=== PATIENT | male | born 1935 | race Caucasian/White ===

== ENCOUNTER 2016-08-04 08:19 | Emergency (ER) | payer MEDICARE, BC ==
--- NOTE | 2016-08-04 09:04 | EDM.PDOC ---
ED HPI GENERAL MEDICAL PROBLEM - General Chief Complaint: Chest Pain Stated Complaint: CHEST PRESSURE AND SOME BACK PAIN Time Seen by Provider: 08/04/16 08:51 Source of Information: Reports: Patient, Family, RN Notes Reviewed History Limitations: Reports: No Limitations - History of Present Illness INITIAL COMMENTS - FREE TEXT/NARRATIVE: 81-year-old gentleman presents emergency department a complaint of chest pressure and shortness of breath states he's been ill feeling this way for about a week he noticed the chest pressure and shortness of breath mainly when he exerts himself. Will come and go denies much pressure or shortness of breath at rest he is pain-free at this time. He does have past medical history of coronary artery disease status post CABG as well as diabetes mellitus type 2 last stress test he thinks is about 5 or 6 years ago Chest Pain Score (Numeric/FACES): 1 - Related Data Allergies Allergy/AdvReac Type Severity Reaction Status Date / Time No Known Allergies Allergy Unverified 08/04/16 08:31 Home Meds: Home Meds Doxazosin [Cardura] 8 mg PO BEDTIME 07/22/15 [History] Finasteride 5 mg PO DAILY 07/22/15 [History] Gemfibrozil [Gemfibrozil] 600 mg PO BID 07/22/15 [History] HCTZ/Spironolactone [Spironolactone/HCTZ 25-25 MG] 1 tab PO DAILY 07/22/15 [ History] Metoprolol Tartrate [Metoprolol Tartrate] 50 mg PO DAILY 07/22/15 [History] Simvastatin [Simvastatin] 10 mg PO BEDTIME 07/22/15 [History] metFORMIN [Glucophage] 1 tab PO TID 07/22/15 [History] Aspirin [Halfprin] 81 mg PO DAILY 08/04/16 [History] Potassium Gluconate [Potassium] 600 mg PO 08/04/16 [History] Past Medical History Cardiovascular History: Reports: High Cholesterol, Hypertension Genitourinary History: Reports: BPH, Prostate Disorder Endocrine/Metabolic History: Reports: Diabetes, Type II - Infectious Disease History Infectious Disease History: Reports: Chicken Pox, Measles - Past Surgical History Cardiovascular Surgical History: Reports: Coronary Artery Bypass Other Cardiovascular Surgeries/Procedures: 15 years ago GI Surgical History: Reports: Colonoscopy, Hernia Repair/Other Social & Family History - Tobacco Use Smoking Status *Q: Never Smoker - Caffeine Use Caffeine Use: Reports: None - Recreational Drug Use Recreational Drug Use: No ED ROS GENERAL - Review of Systems Review Of Systems: See Below Constitutional: Reports: No Symptoms HEENT: Reports: No Symptoms Respiratory: Reports: Shortness of Breath Cardiovascular: Reports: Chest Pain, Dyspnea on Exertion GI/Abdominal: Reports: No Symptoms : Reports: No Symptoms Musculoskeletal: Reports: No Symptoms Skin: Reports: No Symptoms Neurological: Reports: No Symptoms ED EXAM, GENERAL - Physical Exam Exam: See Below Free Text/Narrative:: General: Elderly male, not in any distress, alert and oriented x3 HEENT: head is atraumatic normocephalic, eyes pupils equal round reactive to light, sclera clear no conjunctivitis appreciated. Ears tympanic membranes clear and bui landmarks and light reflex are present bilaterally canals are clear. Nose no septal deviation, nares are clear, no blood present. Mouth mucosa is moist and pink no erythema or exudate noted in soft palate, tongue is midline uvula is midline, dentition is intact. Neck: Supple no thyromegaly no tracheal deviation. Nodes: Cervical nodes subclavicular nodes nontender no palpable lymphadenopathy noted. Lungs: clear to auscultation bilaterally with symmetrical respirations, no adventitious noise appreciated. CV: Regular rate and rhythm S1 and S2 appreciated no murmurs rubs or gallops noted. Abdomen: Soft, nontender, no palpable masses or organomegaly appreciated, no distention no guarding bowel sounds are present, . Neuro: Cranial nerves II through XII grossly intact Skin: Warm and dry, intact Extremities: No lower extremity edema appreciated, pedal pulse is +2. Course - Vital Signs Last Recorded V/S: Last Vital Signs Temp 96.6 F 08/04/16 08:25 Pulse 65 08/04/16 08:25 Resp 18 08/04/16 08:25 BP 138/78 08/04/16 08:25 Pulse Ox 98 08/04/16 08:25 - Orders/Labs/Meds Orders: Active Orders 24 hr Category Date Time Status Cardiac Monitoring [RC] .As Directed Care 08/04/16 08:59 Active EKG Documentation Completion [RC] ASDIRECTED Care 08/04/16 08:59 Active EKG 12 Lead [EK] Stat Ther 08/04/16 08:59 Ordered Labs: Laboratory Tests 08/04/16 08/04/16 Range/Units 09:09 09:09 WBC 6.2 (4.5-11.0) K/uL RBC 4.18 L (4.30-5.90) M/uL Hgb 12.8 (12.0-15.0) g/dL Hct 36.5 L (40.0-54.0) % MCV 87 (80-98) fL MCH 31 (27-31) pg MCHC 35 (32-36) % Plt Count 174 (150-400) K/uL Neut % (Auto) 70 H (36-66) % Lymph % (Auto) 16 L (24-44) % Clark % (Auto) 8 H (2-6) % Eos % (Auto) 6 H (2-4) % Baso % (Auto) 1 (0-1) % Sodium 138 L (140-148) mmol/L Potassium 4.1 (3.6-5.2) mmol/L Chloride 103 (100-108) mmol/L Carbon Dioxide 26 (21-32) mmol/L Anion Gap 13.1 (5.0-14.0) mmol/L BUN 33 H (7-18) mg/dL Creatinine 1.4 H (0.8-1.3) mg/dL Est Cr Clr Drug Dosing 43.45 mL/min Estimated GFR (MDRD) 49 L (>60) Glucose 184 H (74-106) mg/dL Calcium 9.2 (8.5-10.1) mg/dL Total Bilirubin 0.4 (0.2-1.0) mg/dL AST 16 (15-37) U/L ALT 14 (12-78) U/L Alkaline Phosphatase 50 (46-116) U/L Troponin I 0.020 (0.000-0.056) ng/mL Liz-D-[id number] Pept 78 (5-450) pg/mL Total Protein 6.5 (6.4-8.2) g/dL Albumin 3.6 (3.4-5.0) g/dL Globulin 2.9 (2.3-3.5) g/dL Albumin/Globulin Ratio 1.2 (1.2-2.2) Departure - Departure Time of Disposition: 10:11 Disposition: Home, Self-Care 01 Condition: Good Clinical Impression: Chest pain Qualifiers: Chest pain type: unspecified Qualified Code(s): R07.9 - Chest pain, unspecified Forms: ED Department Discharge Additional Instructions: Please report to is on for a stress test, then follow-up with Dr. Medina for review of results, call return to the emergency department worsening of symptoms - My Orders Last 24 Hours: My Active Orders 08/04/16 08:59 Cardiac Monitoring [RC] .As Directed EKG Documentation Completion [RC] ASDIRECTED EKG 12 Lead [EK] Stat - Assessment/Plan Last 24 Hours: My Active Orders 08/04/16 08:59 Cardiac Monitoring [RC] .As Directed EKG Documentation Completion [RC] ASDIRECTED EKG 12 Lead [EK] Stat Plan: Assessment Acuity = acute Site and laterality = chest pain and shortness of breath with exertion complicated patient with known history of diabetes mellitus type 2 and coronary artery disease Etiology = unclear etiology Manifestations = none Location of injury = home Lab values = CBC unremarkable, sodium low at 138 consistent hyponatremia creatinine elevated at 1.4 consistent with chronic renal failure stage G IIIB troponin was negative BNP negative EKG demonstrates left axis deviation with right bundle branch block sinus rhythm chest x-ray shows no acute process Plan Call discussed case with his primary care provider Dr. Medina we agreed to set him up for a Lexiscan stress test to be done this week, he will follow up with Dr. Medina after the test Patient was in agreement with the plan all questions were answered, they were instructed to return to the emergency department or call for worsening symptoms. This note was dictated using [employer] voice recognition software please call with any questions.
--- NOTE | 2016-08-04 10:00 | CR ---
Chest 2V INDICATION: Chest Pain FINDINGS: Sternotomy. Normal heart size. Lungs are clear. Chest otherwise unremarkable.
[2016-08-04 10:51] VITALS: BP 128/66
== END 2016-08-04 10:45 | disposition home or self-care (01) ==
LOC: JP.ED 08:19
DX: R07.9 Chest pain, unspecified (principal); I10 Essential (primary) hypertension; E11.9 Type 2 diabetes mellitus without complications; E78.00 Pure hypercholesterolemia, unspecified; Z95.5 Presence of coronary angioplasty implant and graft; Z98.890 Other specified postprocedural states; Z79.82 Long term (current) use of aspirin; Z79.84 Long term (current) use of oral hypoglycemic drugs; Z79.899 Other long term (current) drug therapy
CPT/HCPCS: 36415; 71020; 71020-26; 80053; 83880; 84484; 85025; 93005; 93010; 99283; 99285-25

== ENCOUNTER 2017-01-06 08:49 | Day surgery (SDC) | payer MEDICARE, BC ==
[~2017-01-06 08:49] MED LIST: Sodium Chloride 0.9% 1,000 ML IV SCH
[2017-01-06] MEDS ORDERED: Propofol 200 MG/20 ML SDV ONE (09:45)
[2017-01-06] MEDS ORDERED: Midazolam 1 MG/ML 2 ML SDV ONE (09:45)
[2017-01-06] MEDS ORDERED: fentaNYL 100 MCG/2 ML SDV ONE (09:45)
[2017-01-06 12:15] VITALS: BP 115/60
--- NOTE | 2017-01-06 13:20 | OR ---
DATE OF PROCEDURE: 01/06/2017 PROCEDURE PERFORMED: Colonoscopy. FINDINGS: 1. A very small polyp completely removed in ascending colon. 2. Transverse colon polyp, approximately 5 mm, completely removed using cold biopsy forceps. COMPLICATIONS: None. MAIL DELIVERER: None. ANESTHESIA: MAC. PREOPERATIVE DIAGNOSIS: History of colon polyps. POSTOPERATIVE DIAGNOSIS: History of colon polyps. RISKS: Risks, benefits, alternatives, and limitations including, but not limited to infection, bleeding, and perforation were explained to the patient, and he wished to proceed. PROCEDURE IN DETAIL: The patient was placed in left lateral decubitus position. Digital rectal exam was performed without abnormality. The scope was then introduced and advanced atraumatically to the ileocecal valve. The scope was brought back to the ascending, transverse, descending colon, and retroflexed. The aforementioned polyps were identified and removed. No abnormalities on retroflex. The patient had diverticulosis, which would be described as very mild. Benigno Huber MD /[id number]
== END 2017-01-06 12:30 | disposition home or self-care (01) ==
LOC: JP.SDS 08:49
PROVIDERS: ATTEND Surgery
DX: Z12.11 Encounter for screening for malignant neoplasm of colon (principal); D12.2 Benign neoplasm of ascending colon; D12.3 Benign neoplasm of transverse colon; K57.30 Diverticulosis of large intestine without perforation or abscess without bleeding; I25.10 Atherosclerotic heart disease of native coronary artery without angina pectoris; E11.9 Type 2 diabetes mellitus without complications; I10 Essential (primary) hypertension; E78.00 Pure hypercholesterolemia, unspecified; Z86.010 Personal history of colon polyps; Z95.1 Presence of aortocoronary bypass graft; Z98.890 Other specified postprocedural states; Z79.01 Long term (current) use of anticoagulants
CPT/HCPCS: 45380; J2250; J2704; J3010; J7040; 88305

== ENCOUNTER 2021-07-28 06:23 | Day surgery (SDC) | payer MEDICARE, BC ==
[2021-07-28] MEDS ORDERED: Lactated Ringers 1,000 ML IV SCH (07:00)
[2021-07-28] MEDS ORDERED: fentaNYL 100 MCG/2 ML SDV ONE (07:22)
[2021-07-28] MEDS ORDERED: Propofol 200 MG/20 ML SDV ONE (07:22)
[2021-07-28 08:50] VITALS: BP 131/56; PULSE 47
== END 2021-07-28 09:05 | disposition home or self-care (01) ==
LOC: JP.SDS 06:23
PROVIDERS: ATTEND Internal Medicine
DX: Z12.11 Encounter for screening for malignant neoplasm of colon (principal); D12.4 Benign neoplasm of descending colon; K64.4 Residual hemorrhoidal skin tags; E11.9 Type 2 diabetes mellitus without complications; I10 Essential (primary) hypertension; Z98.890 Other specified postprocedural states; Z86.010 Personal history of colon polyps
CPT/HCPCS: 45380; 88305; J2704; J3010; J7120

== ENCOUNTER 2023-11-08 08:38 | Inpatient (IN) | payer MEDICARE, BC ==
[2023-11-08 09:56] LABS: BASOPHILS PERCENT AUTO 0.4 % (0.1-1.3); EOSINOPHILS ABSOLUTE AUTO 0.09 K/uL (0.00-0.40); EOSINOPHILS PERCENT AUTO 1.7 % (0.0-5.4); HEMATOCRIT 28.5 % (38.4-49.7); HEMOGLOBIN 10.6 g/dL (12.9-16.9); IMMATURE GRAN ABSOLUTE AUTO 0.04 K/uL (0.00-0.23); IMMATURE GRAN PERCENT AUTO 0.8 % (0.0-0.7); LYMPHOCYTES ABSOLUTE AUTO 0.52 K/uL (0.8-3.3); MEAN CORPUSCULAR HEMOGLOBIN 30.4 pg (31.6-35.5); MEAN CORPUSCULAR HGB CONC 37.2 g/dL (31.6-35.5); MEAN CORPUSCULAR VOLUME 81.7 fL (81.4-99.0); MONOCYTES ABSOLUTE AUTO 0.38 K/uL (0.20-0.90); MONOCYTES PERCENT AUTO 7.3 % (3.3-12.6); NEUTROPHILS ABSOLUTE AUTO 4.15 K/uL (1.0-7.6); NEUTROPHILS PERCENT AUTO 79.8 % (40.0-78.1); PLATELET COUNT,PLT 199 K/uL (130-375); RED BLOOD CELL COUNT 3.49 M/uL (4.14-5.76); WHITE BLOOD CELL COUNT,WBC 5.2 K/uL (3.2-11.0)
[2023-11-08 10:12] LABS: PROTHROMBIN TIME 10.5 sec (9.2-10.6)
[2023-11-08 10:17] LABS: BASOPHILS ABSOLUTE AUTO 0.02 K/uL (0.00-0.10)
[2023-11-08 10:23] LABS: A/G RATIO 1.2 (1.2-2.2); ALANINE AMINOTRANSFERASE,ALT 15 U/L (12-78); ALBUMIN 3.7 g/dL (3.4-5.0); ALKALINE PHOSPHATASE 42 U/L (46-116); ASPARTATE AMNIOTRANSFERASE,AST 3 U/L (15-37); BILIRUBIN TOTAL 0.4 mg/dL (0.2-1.0); BLOOD UREA NITROGEN,BUN 35 mg/dL (7-18); CALCIUM 9.9 mg/dL (8.5-10.1); CARBON DIOXIDE,CO2 24 mmol/L (21-32); CHLORIDE,CL 91 mmol/L (100-108); CREATININE 1.8 mg/dL (0.8-1.3); EST CRCL DRUG DOSING (CG) 29.85 mL/min; ESTIMATED GFR 36 mL/min (>60); GLUCOSE RANDOM 217 mg/dL (74-106); POTASSIUM,K 4.4 mmol/L (3.6-5.2); PRO B-TYPE NATRIUR PEPT,BNPPRO 236 pg/mL (5-450); PROTEIN TOTAL,TP 6.7 g/dL (6.4-8.2); SODIUM,NA 126 mmol/L (140-148)
[2023-11-08 10:26] LABS: ANION GAP 15.4 mmol/L (5.0-14.0)
[2023-11-08] MEDS: Sodium Chloride 0.9% 1,000 ML IV SCH (12:13)
[2023-11-08] MEDS: Sodium Chloride 3% 500 ML IV SCH (16:05)
[2023-11-08 20:07] LABS: CALCIUM 9.7 mg/dL (8.5-10.1); CREATININE 1.6 mg/dL (0.8-1.3); EST CRCL DRUG DOSING (CG) 33.59 mL/min; POTASSIUM,K 4.4 mmol/L (3.6-5.2)
[2023-11-08 20:08] LABS: ANION GAP 14.4 mmol/L (5.0-14.0)
[2023-11-08] MEDS: Pravastatin 20 MG Tab PO SCH (20:12)
[2023-11-08] MEDS: Clopidogrel 75 MG Tab PO SCH (20:13)
[2023-11-08] MEDS: Metoprolol Tartrate 50 MG Tab PO SCH (20:13)
[2023-11-08] MEDS: Doxazosin 4 MG Tab PO SCH (20:13)
[2023-11-09 05:58] LABS: CALCIUM 9.4 mg/dL (8.5-10.1); CREATININE 1.5 mg/dL (0.8-1.3); EST CRCL DRUG DOSING (CG) 35.82 mL/min; POTASSIUM,K 4.1 mmol/L (3.6-5.2)
[2023-11-09 06:03] LABS: ANION GAP 13.1 mmol/L (5.0-14.0)
[2023-11-09] MEDS: Fenofibrate,Micronized 67 MG Cap PO SCH (08:07)
[2023-11-09] MEDS: Finasteride 5 MG Tab PO SCH (08:07)
[2023-11-09] MEDS: Potassium Chloride 10 MEQ Cap.ER PO SCH (08:07)
[2023-11-09] MEDS: Aspirin 81 MG Tab.EC PO SCH (08:07)
[2023-11-09] MEDS ORDERED: Clopidogrel 75 MG Tab PO SCH (09:00)
[2023-11-09 17:22] VITALS: BP 152/76; PULSE 82
== END 2023-11-09 17:30 | disposition home or self-care (01) | DRG 641 ==
LOC: JP.ED 08:38 → JP.MS 11:01 → UNDOADMIN 11:36
PROVIDERS: ADMIT Internal Medicine; ATTEND Internal Medicine
DX: E87.1 Hypo-osmolality and hyponatremia (principal); I20.9 Angina pectoris, unspecified; I10 Essential (primary) hypertension; E78.00 Pure hypercholesterolemia, unspecified; E11.9 Type 2 diabetes mellitus without complications; N40.0 Benign prostatic hyperplasia without lower urinary tract symptoms; Z95.1 Presence of aortocoronary bypass graft; Z79.82 Long term (current) use of aspirin; Z79.02 Long term (current) use of antithrombotics/antiplatelets; Z98.49 Cataract extraction status, unspecified eye; Z79.84 Long term (current) use of oral hypoglycemic drugs; Z86.010 Personal history of colon polyps; Z98.890 Other specified postprocedural states; Z79.899 Other long term (current) drug therapy
CPT/HCPCS: 36415; 71045; 71045-26; 80048; 80053; 83880; 84295; 84484; 85025; 85610; 93005; 93010; 99285; A9270-GY; J7030; J7131

== ENCOUNTER 2025-01-29 05:52 | Day surgery (SDC) | payer MEDICARE, BC ==
[2025-01-29] MEDS: Lactated Ringers 1,000 ML IV SCH (06:19)
[2025-01-29] MEDS ORDERED: fentaNYL 50 MCG/ML SDV ONE (07:17)
[2025-01-29] MEDS ORDERED: Propofol 200 MG/20 ML SDV ONE (07:17)
[2025-01-29] MEDS ORDERED: Glycopyrrolate 0.2 MG/ML 5 ML MDV ONE (07:30)
[2025-01-29 08:30] VITALS: BP 131/71; PULSE 55
== END 2025-01-29 08:43 | disposition home or self-care (01) ==
LOC: JP.SDS 05:52
PROVIDERS: ATTEND Internal Medicine
DX: Z12.11 Encounter for screening for malignant neoplasm of colon (principal); D12.2 Benign neoplasm of ascending colon; I10 Essential (primary) hypertension; E78.00 Pure hypercholesterolemia, unspecified; E11.9 Type 2 diabetes mellitus without complications; Z86.0100 Personal history of colon polyps, unspecified; Z79.84 Long term (current) use of oral hypoglycemic drugs; Z79.899 Other long term (current) drug therapy
CPT/HCPCS: 00811; 45380; 88305; J2704; J3010; J7120; J1596